=== PATIENT | male | born 1990 | race African-American/Black ===

== ENCOUNTER 2017-01-20 21:48 | Emergency (ER) | payer OTHER ==
--- NOTE | ~2017-01-20 | CT71 ---
[facility] A Service of [facility] RADIOLOGY TEXT RESULTS PATIENT: SUSY RIZZO LOCATION: [facility] : 91 UNIT #: [id number] AGE: [address]: Baltazar Dale MD SEX: M ORDER DR: [id number] [facility] [address] [place], [place] [address] [id number] MR#: [id number] Acc #: [id number] NAME: SUSY RIZZO. : 1990 SEX: M STUDY DATE/TIME: 01/20/2017 21:15 UNIT: ROGEL[facility] ROOM: STUDY DESCRIPTION: CT Head Wo Contrast Attending Physician: Baltazar Dale M.D. Ordering Physician: Baltazar Dale M.D. Primary Care Physician: No Primary Care Physician MEDICAL IMAGING REPORT This report is preliminary unless electronic signature is present EXAM Head CT, no contrast, 01/20/2017 INDICATIONS Seizure today in a 26-year-old male, autism, ADHD. History of seizures. TECHNIQUE This CT exam was performed with one or more of the following radiation dose reduction techniques: automatic exposure control, adjustment of mA and/or kV according to patient size, and iterative reconstruction. Noncontrast CT brain was performed. No comparisons. FINDINGS CT brain: Sulci and ventricles are unremarkable. No midline shift. No evidence of acute intracranial hemorrhage. There is no mass, mass effect or edema to suggest acute infarct and no extraaxial fluid collections are present. Globes are intact. Bones are intact. Sinuses are clear. IMPRESSION Negative noncontrast CT of the brain. Dictated by... Jose L Ohara M.D. THIS IS AN ELECTRONICALLY VERIFIED REPORT Jose L Ohara M.D. at 01/21/2017 11:41 AM Tez TD: 01/21/2017 00:23 JOB #: [id number] [facility] A Service [facility] RADIOLOGY TEXT RESULTS PATIENT: SUSY RIZZO LOCATION: [facility] : 91 UNIT #: [id number] AGE: [address]: Baltazar Dale MD SEX: M ORDER DR: MEDICAL IMAGING REPORT Page 1 of 1 COPY
[2017-01-20 20:55] LABS: BASOPHIL# 0.1 X10e3 (0-0.3); BASOPHIL% 0.9 % (0-2.5); EOSINOPHIL# 0.1 X10e3 (0-0.7); EOSINOPHIL% 2.2 % (0.0-7.0); HEMOGLOBIN 14.7 gm/dL (13.0-16.0); LYMPHOCYTE# 1.6 X10e3 (1.0-3.5); LYMPHOCYTE% 29.3 % (17.0-45.0); MEAN CELL VOLUME 89.5 FL (83-96); MEAN CORPUSCULAR HGB CONC 33.5 g/dL (30-36); MEAN PLATELET VOLUME 9.4 FL (6.5-11.5); MONOCYTE# 0.4 X10e3 (0-1.0); NEUTROPHIL# 3.3 X10e3 (1.5-7.1); NEUTROPHIL% 59.6 % (40-75); PLATELET COUNT 176 X10e3 (140-420); RED BLOOD COUNT 4.92 X10e (3.90-5.60); RED CELL DISTRIBUTION WIDTH 13.1 % (11.0-15.5); WHITE BLOOD COUNT 5.5 X10e3 (4.0-10.5)
[2017-01-20 21:03] LABS: DIFF IND NO
[2017-01-20 21:11] LABS: BLOOD UREA NITROGEN 17 mg/dL (9-23); CALCIUM SERUM 9.1 mg/dL (8.4-10.2); CARBON DIOXIDE 22 mmol/L (22-31); CHLORIDE 105 mmol/L (100-111); DEPAKENE (VALPROIC ACID) 13 ug/mL (50-125); DILANTIN (PHENYTOIN) <2.5 ug/mL (10.0-20.0); GLOM FILT RATE Estimated 120.7 mL/min (>60); GLUCOSE FASTING 89 mg/dL (70-110); POTASSIUM 3.9 mmol/L (3.5-5.1); SODIUM 137 mmol/L (135-145); TEGRETOL (CARBAMAZEPINE) <2.0 ug/mL (4.0-12.0)
== END 2017-01-20 22:25 | disposition home or self-care (01) ==
LOC: CED 21:48
PROVIDERS: Emergency Medicine
DX: G40.409 Other generalized epilepsy and epileptic syndromes, not intractable, without status epilepticus (principal)
CPT/HCPCS: 36415; 70450; 80048; 80156; 80164; 80184; 80185; 85025; 96365; 99284; J1953